=== PATIENT | male | born 1955 | race Caucasian/White ===

== ENCOUNTER 2017-04-29 18:48 | Inpatient (IN) ==
[2017-04-29] MEDS ORDERED: ZALEPLON 5 MG CAPSULE PO PRN (19:14)
[2017-04-29] MEDS ORDERED: ONDANSETRON 4 MG/2 ML VIAL IV PRN (19:14)
[2017-04-29] MEDS ORDERED: NITROGLYCERIN SL 0.4 MG TABLET SL PRN (19:14)
--- NOTE | 2017-04-29 19:26 | Cardiology History & Physical ---
Assessment and Plan (1) ST elevation (STEMI) myocardial infarction involving right coronary artery Status: Acute Assessment and plan: 1. 61-year-old white male smoker with hypertension, possible borderline diabetes "I think that I am borderline", untreated dyslipidemia (uncertain "allergy" to multiple statins), status post reported cerebral aneurysm clip December 2016, presented with intermittent episodes of chest pain for 3 days noted to have inferior injury pattern on EKG at [facility] with some anterolateral ST depression suggesting some reciprocal change transferred here for urgent heart catheterization. 2. Heart catheterization showed minimal left coronary disease, with critical 99 % high mid RCA stenosis as well as 80% distal stenosis now status post stenting with 2 drug-eluting stents (2.75 x 16, and 2.25 x 18 respectively with good result 3. He reportedly had another cerebral aneurysm that was not clipped but "they are just going to watch that one" 4. CT brain at [facility] reportedly showed some encephalomalacia with left temporal frontal clip?, With no acute bleeding or abnormality. 5. Apparent erythrocytosis status post phlebectomy "1 pint" yesterday at noon 6. Discontinuing all smoking will be very important for his future prognosis; will place low-dose nicotine patch, as he also has significant anxiety and reported claustrophobia taking frequent Xanax. 7. He apparently has been written and a depressive medicine in the past but is not taking it. Start Lexapro 10 mg daily. 8. Admit to CCU for close observation 9. Consult neurology given his need for antiplatelet therapy and history of cerebral aneurysm. We will need to try to get his records, was reportedly performed at [facility]? 10. I suspect he does not have real allergy to statins but since he is not a particular good historian now and his is unaware I will hold off on statin therapy for now. 11. Mild hypertension, will start low-dose Coreg given his TX. 12. Normal LV systolic function with ejection fraction 65% noted at catheterization. Addendum: I discussed with the patient the risks and benefits of heart catheterization including but not limited to , stroke, heart attack, vascular damage, reaction to medicine or dye, bleeding requiring blood transfusion, possible failure the procedure, possible need for urgent surgery, and possible restenosis requiring repeat intervention in the future. I have answered all questions regarding the procedure and the patient wishes to proceed. Current Visit: Yes (2) Hypertension Status: Acute Current Visit: Yes (3) Cerebral aneurysm Status: Acute Current Visit: Yes (4) Smoker Status: Acute Current Visit: Yes (5) Erythrocytosis Status: Acute Current Visit: Yes (6) Dyslipidemia Status: Acute Current Visit: Yes History of Present Illness Chief complaint: cp History of present illness: Mr. Bal is a 61 year old male who is transferred emergently to the [facility] here for inferior ST elevation myocardial infarction. He is a somewhat poor historian and reportedly had aneurysm clip in his brain in 2-3 weeks ago. He has had chest discomfort of some degree for several days but sought medical care at [facility] for persistent pain. He apparently also had some shoulder pain and some abdominal pain that radiated to his chest. He did not report having shortness of breath when he arrived here. He is not recall ever having any heart problems in the past but is not sure. He believes he is borderline diabetic, but his is unaware of this. He has had chest pain off and on since Thursday night when he is seen in the ER and felt to have indigestion. He always has dyspnea on exertion so his is unsure that is gotten any worse. She is unsure if he is having any change with any activities or positioning. He apparently takes a lot of Xanax for anxiety and apparently has not wanted to take antidepressants but was written some recently. He had a pint of blood taken off today about lunchtime "for blood that is to high". His chest pain got worse this evening using it [facility] where his troponin was 0.8 and he had some inferior ST elevation of about a millimeter in [address] some [address] depression laterally. Allergies Allergy/AdvReac Type Severity Reaction Status Date / Time codeine Allergy Verified 04/29/17 19:07 [id number] Reductase Allergy Verified 04/29/17 19:07 Inhibitor Cardiology Physical Exam - Constitutional Vitals: Intake and Output 04/29/17 04/29/17 04/29/17 07:59 15:59 23:59 Other: Weight 77.111 kg Patient Weight 04/29/17 23:59 Weight 77.111 kg General appearance: normal weight, mild distress - Head Head exam: Present: normal inspection, normocephalic, atraumatic - Cardiovascular Cardiovascular exam: Present: regular rate and rhythm - Extremities Exam Extremities exam: Absent: edema - Psychiatric Psychiatric exam: Present: anxious
[2017-04-29] MEDS ORDERED: SODIUM CHLORIDE 0.45% 1,000 ML IV SCH (19:30)
--- NOTE | 2017-04-29 19:51 | Cardiac Catheterization ---
Date of Procedure:: 04/29/17 Post-op diagnosis: same Procedure: Procedure performed: 1. Left heart catheterization 2. Coronary angiography 3. Left ventriculography 4. Abdominal aortogram with runoff 5. Right femoral arteriotomy closed with the Angio-Seal device Brief clinical summary: Mr. Bal arrived with inferior injury pattern ongoing chest pain. Description of procedure: After obtaining informed consent, the right groin was prepped and draped in the usual sterile fashion. Next a short 6 Kosovan sheath was placed in the right femoral artery using a modified Seldinger technique, after the patient received IV sedation and local anesthetic. Next a JL4 catheter was advanced over a guidewire under fluoroscopic guidance, and was engaged to the left coronary artery after which angiography was performed in multiple views. This was then removed over a wire, and a hockey-stick guiding catheter was advanced in similar fashion, and was engaged to the right coronary artery after which angiography was performed in multiple views. Percutaneous coronary mention was then performed as described below. After the intervention , next a bent pigtail catheter was advanced into the left ventricle, where hemodynamic measurements were obtained, and left ventriculography was performed. The pigtail was then pulled back and positioned in the distal abdominal aorta or abdominal urogram was performed with runoff. The angiogram showed that it was inserted in the right common femoral artery in a vessel suitable for closure. Hemostasis was obtained with Angio-Seal device with no residual bleeding. The patient was transferred from the [facility] in good condition without complication. Percutaneous coronary mention: The patient arrived the [facility] having received Lovenox full dose prior to transfer and aspirin. I loaded him with 300 mg of Plavix on the table as soon as it was clear he needed percutaneous intervention. A pro-water wire was advanced across the critical high mid RCA lesion without difficulty and advanced to the distal RCA. Next a 2.75 x 16 Synergy stent was advanced crosshair disease and was deployed at nominal pressures. Without moving the balloon I redilated to rated burst pressure is a stent appear to be slightly undersized on angiogram. In a different view there was a clear 80-90% stenosis in the distal RCA which was not the culprit was clearly significant. I was concerned this could be unstable plaque and so I removed the balloon and advanced a 2.25 x 18 Renny stent and stented this at nominal pressures. Without moving the balloon I dilated slightly above nominal pressures and there was a good result with the stent but there was a 30% stenosis of the distal edge which appeared to be a mild plaque at the distal stent edge. I advanced the balloon passed about 4 mm and dilated to just below nominal pressures for minute and a half. There was still residual 30% stenosis the distal edge but otherwise the stent look good with JOE-3 flow at the end of the procedure, there was JOE II flow before the initial stent was placed. Coronary angiography: Left main coronary arteries normal developed and free of disease. Left introducing artery is slightly smaller than average in caliber but does just reach the apex. There is a 40% high mid LAD stenosis of the first septal garden center manager. There is a long at least average caliber high diagonal branch and a tiny distal second diagonal branch. There are moderate irregularities in the LAD but no significant disease. The circumflex gives off only 2 branches of significance the OM1 has mild disease of 30%. The OM 2 has an ostial 60% discrete stenosis. Right coronary is a dominant vessel is of average in caliber. There is modest calcification proximally. There is a critical 99% high mid RCA stenosis, as well as an area of moderate to severe disease in the distal RCA varying from 50-90%. There is also moderate 50% disease in the mid PDA per the PDA is at least average caliber and is longer than average. There are 2 thinner than average caliber first and second posterior lateral branches. Left ventriculography: Left ventricle normal size with normal LV systolic function. The estimated ejection fraction is 65% without segmental wall motion abnormality. Abdominal aortogram with runoff: There is only mild disease throughout the right and left iliac and common femoral systems with widely patent profunda bilaterally. Both internal iliacs are patent. The right SFA has a discrete 60- 70 % stenosis in the midportion. The left mid SFA has a 70% discrete stenosis. There was three-vessel runoff to just past the trifurcation (mid and distal tibials were not evaluated) Impression: 1. Normal LV systolic function with ejection fraction is will be 65% without segmental wall is currently 2. Right dominant system 3. Diffuse nonsignificant disease in the left coronary with 60% ostial OM 2 stenosis 4. 99% high mid RCA stenosis (culprit vessel) with JOE II flow prior to stenting. 5. Severe distal RCA stenosis at worst 90%. 6. Status post stenting of mid RCA with drug-eluting stent (2.75 x 16 synergy) with excellent result and no residual stenosis. 7. Status post stenting of distal RCA with drug-eluting stent (2.25 x 18) dilated to 2.5 mm with 30% stenosis at the distal edge 8. Bilateral discrete approximate 70% mid SFA stenoses Recommendation discussion: Given these findings I believe achieved very good result cart distending Mr. Bal's critical RCA lesion which was the culprit for his inferior MN. We got a reasonable result stenting is significant distal RCA disease. When I initially accessed the vessel there appeared to be a low pressure pulse pressure and he reported that he had leg pain with walking less than 50 yards which prompted lower extremity angiography. His creatinine was normal and Louisa with high hematocrit in the 55% range I will consult neurology to give input given his history of aneurysm clips, and cerebral aneurysm. He apparently is followed Dr. De Leon previously. He will be watched closely in the CCU . We will continue Plavix and aspirin for now. Anesthesia: minimal conscious sedation Surgeon / Physician: James Castro Senior Billing Consultant: other Estimated blood loss: minimal Specimens: none sent Condition: stable Disposition: ICU/CCU - Medications / Follow-up
[2017-04-29] MEDS: FAMOTIDINE 20 MG TABLET PO SCH (20:34)
[2017-04-29] MEDS: CARVEDILOL 3.125 MG TABLET PO SCH (20:34)
[2017-04-29 22:23] LABS: CKMB % 12.8 %
[2017-04-29 22:25] LABS: Troponin I Only 4.02 NG/ML (0.00-0.045)
[2017-04-30 05:36] LABS: Basophils % 0.6 % (0.0-0.8); Eosinophils # 0.1 10*3/uL (0.0-0.87); Eosinophils % 0.9 % (0.00-10.9); Hemoglobin 19.7 GM/DL (14.0-18.0); Immature Granulocytes % 0.3 %; Immature Granulocytes Absolute 0.02 #; Lymphocytes # 2.4 10*3/uL (1.4-4.0); Lymphocytes % 38.3 % (21.2-54.2); Mean Corpuscular HGB Conc 35.2 GM/DL (32-36); Mean Corpuscular Hemoglobin 36 PG (27-34); Mean Platelet Volume 9.2 FL (9.6-12.0); Monocytes # 0.7 10*3/uL (0.11-0.8); Monocytes % 10.8 % (1.7-12.7); Neutrophils # 3.1 10*3/uL (1.4-7.4); Neutrophils % 49.1 % (38.7-73.9); Platelet Count 170 T/CUMM (130-400); Red Blood Count 5.49 MC/CUMM (3.8-5.5); Red Cell Distribution Width 13.6 % (9.3-17.3); White Blood Count 6.4 T/CUMM (4-12)
[2017-04-30 06:18] LABS: CKMB % 14.1 %; Calcium 8.9 MG/DL (8.5-10.1); Osmolality,Calculated 273.7 MOS/KG (273-304); Potassium 3.9 MMOL/L (3.5-5.1)
[2017-04-30 06:25] LABS: Troponin I Only 10.3 NG/ML (0.00-0.045)
--- NOTE | 2017-04-30 07:02 | EKG Report ---
Stationary ECG Study [facility] Test Date: 04/30/2017 7:02 AM Pat Name: JUAN MIGUEL ARGUELLES Department: Room: 121 Gender: M Collection Correspondent: YOSELYN : 1955 Requested by: James Rodríguez Order Number: [id number] Morena MD: TEX GUERRA Intervals [place] Rate: 69 P: 64 CO: 165 QRS: 75 QRSD: 94 T: 112 QT: 412 QTc: 431 Interpretive Statements SINUS RHYTHM Electronically Signed On 04-30-17 10:38:39 CDT by TEX GUERRA [email or web address]
[2017-04-30] MEDS ORDERED: ESCITALOPRAM 10 MG TABLET PO SCH (09:00)
[2017-04-30] MEDS: ASPIRIN EC 81 MG TABLET PO SCH (09:53)
[2017-04-30] MEDS: FAMOTIDINE 20 MG TABLET PO SCH ×2 (09:53→22:10)
[2017-04-30] MEDS: CLOPIDOGREL 75 MG TABLET PO SCH (09:53)
[2017-04-30] MEDS: CARVEDILOL 3.125 MG TABLET PO SCH (09:53)
[2017-04-30] MEDS: LEVALBUTEROL 0.63 MG/3 ML NEB RESP TX SCH ×3 (14:10→22:37)
[2017-04-30] MEDS: ALPRAZolam 0.5 MG TABLET PO SCH ×2 (14:32→22:10)
--- NOTE | 2017-04-30 15:21 | Cardiology Progress Note ---
I, Marilee Xavier NP, am scribing for, and in the presence of, Roderick Sosa MD 15:21. Assessment and Plan - Time spent with patient Time spent with patient: Greater than 30 minutes (Record review, assessment, documentation) (1) Cerebral aneurysm Status: Chronic Assessment and plan: SEE PLAN LISTED BELOW Current Visit: Yes (2) Dyslipidemia Status: Chronic Assessment and plan: SEE PLAN LISTED BELOW Current Visit: Yes (3) Erythrocytosis Status: Chronic Assessment and plan: SEE PLAN LISTED BELOW Current Visit: Yes (4) Hypertension Status: Chronic Assessment and plan: SEE PLAN LISTED BELOW Current Visit: Yes (5) ST elevation (STEMI) myocardial infarction involving right coronary artery Status: Acute Assessment and plan: SEE PLAN LISTED BELOW Current Visit: Yes (6) Smoker Status: Chronic Assessment and plan: SEE PLAN LISTED BELOW Current Visit: Yes Cardiology - PN: Subj Interval history: LEAD CUSTOMER SERVICE REPRESENTATIVE: Dr. Castro SUMMARY: Mr. Bal is a 61 WM who transferred emergently for inferior ST elevation myocardial infarction. The patient is a poor historian due to previous cerebral aneurysm with clips, but apparently had ongoing chest discomfort for several days and presented to [facility] ER for persistent chest pain, shoulder pain, and abdominal pain radiating to the chest. He was immediately taken for cardiac catheterization where he received a stent to the mid and distal RCA. He was noted to have bilateral discrete 70% mid SFA stenoses. LV systolic function is normal, with EF is 65%, and there is diffuse nonsignificant disease in the left coronary with 60% ostial OM 2. Patient was seen in ICU today. He was awake and alert, oriented to self. After reorienting the patient, he denies complaints of chest pain or shortness of breath. He has some wheezing noted bilaterally, and the patient does confirm that he has COPD. He is a heavy smoker, admitting 1 pack per day and smoking "forever". Vital signs have remained stable, and the patient did well overnight. Labs reviewed this morning reveal hemoglobin 19.7 and hematocrit 56. Hematology has been consulted for this. EKG shows sinus rhythm. I plan is to transfer the patient to telemetry, and continue monitoring. I will stop Coreg and change this to metoprolol due to his COPD. We will start respiratory treatments on the patient for wheezing, he does not appear to be in distress. Neurology consult pending, CT of head performed at the external facility revealed old left frontotemporal craniotomy with associated suprasellar aneurysm clips, suggestion of minimal inferior medial right frontal cortical encephalomalacia, no acute findings. Plan for social service consult for help with medications upon discharge, the patient does not have insurance. IMPRESSION/PLAN: 1. STEMI -status post PCI to mid and distal right coronary artery. Multiple nonobstructive lesions in addition. Continue ASA, BB, and Plavix. 2. TOBACCO ABUSE -the merits of smoking cessation discussed with the patient and making cessation encouraged. 3. DYSLIPIDEMIA -recommend lifestyle changes, initiated Crestor 10 mg nightly. Previous "allergy" noted, unknown reaction. Given his diffuse CAD, PAD, we will try to initiate low-dose statin and increase as tolerated 4. ERYTHROCYTOSIS -H&H 19.7 and 56, COPD contributing factor, hematology consult pending. I suspect this is due to COPD, heavy smoking. 5. PAD -bilateral mid SFA stenosis estimated at 70%, smoking cessation necessary, will need outpatient follow-up. 6. HYPERTENSION -metoprolol initiated, will monitor and adjust accordingly. 7. Cerebral aneurysm -neurology consult pending due to his need for antiplatelet therapy and a history of aneurysm. CT of head revealed chronic left frontotemporal craniotomy with associated suprasellar aneurysm clips, suggested minimal inferior medial right frontal cortical encephalomalacia May go to telemetry Exam (Progress Note) - Constitutional Vitals: Period Temp Pulse Resp BP Sys/Florian Pulse Ox Last 24 Hr 97.4 F-98.7 F 62-79 12-28 94-141/61-87 92-100 Exam: General: Appears well with no apparent distress. Pleasant and cooperative. Appears comfortable. HEENT: PERRL, normocephalic, atraumatic. Mucous membranes moist. No jaundice noted. Conjunctiva moist and clear, sclerae anicteric. Neck: No JVD/HJR, no thyromegaly or lymphadenopathy noted. No carotid bruit appreciated. Cardiac: Regular rate and rhythm. No murmur rub or gallop. PMI is nondisplaced. Lungs: Wheezing noted bilaterally throughout, no distress noted. Oxygen in use via nasal cannula. Abdomen: Soft, bowel sounds normoactive. Nontender and nondistended. No abdominal bruit or thrill noted. No masses noted. Musculoskeletal: No fluid collection. Full range of motion is noted. Extremities: No clubbing, cyanosis noted. No edema noted. Upper extremity pulses 2+. Lower extremity pulses 2+. Capillary refill less than 3 seconds. Dressing removed from right groin, soft, no hematoma noted, no bruit auscultated , right pedal pulse palpable. Skin: Warm and dry. No unusual lesions or rashes. No skin breakdown appreciated. Neuro: Awake, alert and oriented to self. Moves all extremities well without hemiparesis or paralysis. No essential tremor is appreciated. Result/EKG - Labs CBC & BMP: 04/30/17 05:04 04/30/17 05:04 Lab Results: I have reviewed the past 24 hour labs Labs: Laboratory Results - last 24 hr 04/29/17 04/30/17 04/30/17 21:12 05:04 05:04 WBC 6.4 RBC 5.49 Hgb 19.7 H Hct 56.0 H MCV 102.0 MCH 36 H MCHC 35.2 RDW 13.6 Plt Count 170 MPV 9.2 L Neut % (Auto) 49.1 Lymph % (Auto) 38.3 [place] % (Auto) 10.8 Eos % (Auto) 0.9 Baso % (Auto) 0.6 Neut # (Auto) 3.1 Lymph # (Auto) 2.4 [place] # (Auto) 0.7 Eos # (Auto) 0.1 Baso # (Auto) 0.0 Immature Gran % 0.3 Nucleated RBC % 0.0 Immature Gran # 0.02 Nucleated RBCs # 0.00 Immature Plt Fraction 0.0 Sodium 138 Potassium 3.9 Chloride 101 Carbon Dioxide 30 Anion Gap 10.9 BUN 7 Creatinine 0.80 GFR Calculation 112 BUN/Creatinine Ratio 8.00 Glucose 112 H Calculated Osmolality 273.7 Calcium 8.9 Total Creatine Kinase 260 307 CK-MB (CK-2) 33.3 H 43.3 H D CK and CKMB Interp 12.8 14.1 Troponin I 4.020 H 10.300 H D - Diagnostic Findings Procedure: CT: report reviewed by me - EKG EKG results: interpreted by me, sinus rhythm Specialty Discharge - Follow Up or Referrals Sheila Galvez Attila, MD, personally performed the services described in this documentation, ascribed by Marilee Xavier NP in my presence, and it is both accurate and complete 521 .
--- NOTE | 2017-04-30 15:31 | Oncology Consult Note ---
History of Present Illness Chief complaint: Elevated Hemoglobin History of present illness: Mr. Bal is a 61 year old male with apparent stress polycythemia. I was asked to see this patient because of polycythemia. He is a 61-year-old smoker with hypertension and possible borderline diabetes. He was admitted with a right coronary artery myocardial infarct and on admission was found to have a hemoglobin of 19.7 with a hematocrit of 56.0. His white cell count is 6400 and he has a platelet count of 170,000. His white cell differential is normal. Yesterday he underwent: 1. Left heart catheterization 2. Coronary angiography 3. Left ventriculography 4. Abdominal aortogram with runoff 5. Right femoral arteriotomy closed with the Angio-Seal device Cardiovascular disease is also positive for the patient having 2 cerebral aneurysms, one of which has been clipped and the other one is being observed. This is been concern about the patient needing antiplatelet therapy with the cerebral aneurysms. Since I am not familiar with the extent of this disease, I agree with consulting neurology at [facility] to get their opinion concerning this matter. The patient is not a good historian. Some of the information is from his . Past medical history: Allergies: The patient is allergic to statins, codeine and HMG-CoA reductase inhibitors. Past medical history is positive for hypertension, dyslipidemia, diabetes mellitus. Social history: Positive for cigarette smoking. Family history: Negative for blood dyscrasias or bleeding disorders. His mother of pancreatic cancer. ROS: Information is difficult to obtain. The patient explains that his mentation has not been good since he had the cerebral aneurysm clipped. Apparently he has no history of eye disease. ENT disorders, he does not recall any. Pulmonary: He continues to smoke but there is no definite history of significant COPD or asthma. GI: No history of upper or lower GI bleed but again the patient is very vague about his symptoms. Review of systems is otherwise difficult to obtain. Neurologic: Apparently the patient has not had any seizures, convulsions or paralysis and has not actually had a stroke. Physical examination: General: The patient is somewhat acutely ill-appearing but not in any extremis. Eyes: Normal lids and conjunctivae. ENT: His oral mucosa and pharynx are normal. His hearing is normal. Teeth appear normal. Neck: His trachea is midline and he has no neck masses. Pulmonary: Breath sounds may be slightly coarse throughout but I hear no rubs, rales or rhonchi in the expiratory phase of respiration is normal. I note that earlier in his admission he had expiratory wheezing bilaterally. There is no chest tenderness. Cardiovascular: His heart rhythm is regular without murmur, gallop or rub. There is no clubbing or cyanosis. Abdomen: No masses, organomegaly, distention, tenderness or ascites. Musculoskeletal: There is no focal muscle atrophy or bone or joint deformity. Neurologic: The patient's mentation is slow but I cannot detect any focal neurologic deficit including cranial nerves II through XII. Skin: I see no significant skin lesions or rashes. Psychiatric: Again, the patient's mentation is slow but he does not necessarily appear to have any significant psychiatric problem. Impression: Stress polycythemia. Once his cardiac condition has improved, he can continue phlebotomies. My recommendation would be to continue phlebotomies on a weekly basis until his hemoglobin is 15 or less. This can be accomplished by his primary care physician. I do not plan to phlebotomize him polys here. Thank you for consulting me. Home Medications Medication Instructions Recorded Confirmed Type ALPRAZolam [Xanax] 1 mg PO TID 04/30/17 04/30/17 History Lisinopril/Hydrochlorothiazide 1 each PO BEDTIME 04/30/17 04/30/17 History [Zestoretic 10-12.5 mg Tablet] Metoprolol Tartrate Tab [Lopressor 50 mg PO DAILY 04/30/17 04/30/17 History Tab] Allergies Allergy/AdvReac Type Severity Reaction Status Date / Time codeine Allergy Verified 04/29/17 19:07 [id number]-[id number]-Kfu Reductase Allergy Verified 04/29/17 19:07 Inhibitor Medical,Surgical,& Family Hx - Medical History Cardio: History of: Hypertension Psychological: History of: Anxiety Disorders, Depression Neurology: History of: Brain Aneurysm, Dementia (short term memory post brain sx ) Endocrine: History of: Dyslipidemia Respiratory: History of: Asthma, Bronchitis, COPD, Pneumonia Gastrointestinal: History of: GERD, GI Problems (hernia post colon sx) Musculoskeletal: History of: Back/Neck Problems (back sx) - Surgical History Neurologic Surgeries: Surgical HX of: Brain Aneurysm, Neurologic Surgery (brain aneurysm sx in october) Abdominal Surgeries: Surgical HX of: Appendectomy Orthopedic Surgeries: Comment Only: Total Knee Replacement (sx on right miniscus) - Family History Family History: Reports;: Family Cancer (mom pancreatic), Family Diabetes ( brother. father), Family Heart Disease (brother), Family Hypertension (mom dad brothers), Family Stroke (brother) - Social History Smoking Status: Current every day smoker Frequency of Alcohol Use: Frequently Type of Drug Use: None Exam - Constitutional Vitals: Period Temp Pulse Resp BP Sys/Florian Pulse Ox Last 24 Hr 97.4 F-98.7 F 62-79 12-28 94-141/61-87 91-100 Results - Labs CBC & BMP: 04/30/17 05:04 04/30/17 05:04 Specialty Discharge - Follow Up or Referrals
[2017-04-30] MEDS: ROSUVASTATIN 10 MG TABLET PO SCH (22:10)
[2017-05-01] MEDS: LEVALBUTEROL 0.63 MG/3 ML NEB RESP TX SCH ×6 (02:32→23:43)
[2017-05-01 04:54] LABS: Basophils # 0.1 10*3/uL (0.0-0.2); Basophils % 0.8 % (0.0-0.8); Eosinophils # 0.1 10*3/uL (0.0-0.87); Eosinophils % 0.8 % (0.00-10.9); Hematocrit 53.4 VOL% (42.0-52.0); Hemoglobin 18.8 GM/DL (14.0-18.0); Immature Granulocytes % 0.5 %; Immature Granulocytes Absolute 0.03 #; Lymphocytes # 2.7 10*3/uL (1.4-4.0); Mean Corpuscular HGB Conc 35.2 GM/DL (32-36); Mean Corpuscular Hemoglobin 36 PG (27-34); Mean Corpuscular Volume 102.1 FL (87-102); Mean Platelet Volume 9.4 FL (9.6-12.0); Monocytes # 0.7 10*3/uL (0.11-0.8); Monocytes % 9.9 % (1.7-12.7); Neutrophils # 3.1 10*3/uL (1.4-7.4); Platelet Count 147 T/CUMM (130-400); Red Blood Count 5.23 MC/CUMM (3.8-5.5); Red Cell Distribution Width 13.3 % (9.3-17.3); White Blood Count 6.5 T/CUMM (4-12)
[2017-05-01 05:22] LABS: Calcium 8.9 MG/DL (8.5-10.1); Magnesium 2.3 MG/DL (1.8-2.4); Osmolality,Calculated 274.7 MOS/KG (273-304); Potassium 3.8 MMOL/L (3.5-5.1)
--- NOTE | 2017-05-01 07:20 | Physician Query Form ---
CLICK EDIT DOCUMENT TO SELECT QUERY ANSWER --> OK --> SIGN Magda Lake RN, CCDS Certified Clinical Marine Engineering Teacher W) [phone] (f) [phone] [email or web address] PROVIDERS: Make your selection(s) from the choices in EACH section by typing an "x" and enter comments in the comment section. Please use your independent medical judgment in providing your response. This request does not imply that any particular answer is desired or expected. CLINICAL INDICATORS: (Providers should not edit this section) "He has some wheezing noted bilaterally, and the patient does confirm that he has COPD" and the patient was placed on Xopenex. Clarify which of the following accurately represents the acuity of the above diagnosis. ( ) Acute (Exacerbation) (x) Acute (Exacerbation) on chronic ( ) Chronic stable condition ( ) Remission ( ) Other, please specify: ( ) Clinically unable to determine COMMENTS: PLEASE ALSO DOCUMENT RESPONSE IN PROGRESS NOTES AND/OR DISCHARGE SUMMARY Use of terms such as suspected, likely, or probable (associated with a specific diagnosis that is being evaluated, monitored, or treated as if it exists) are acceptable and can be restated in the discharge summary if not ruled out. [facility]
[2017-05-01] MEDS ORDERED: ACETAMINOPHEN 500 MG TABLET PO PRN (08:01)
--- NOTE | 2017-05-01 08:38 | EKG Report ---
Stationary ECG Study [facility] Test Date: 05/01/2017 8:15:56 AM Pat Name: JUAN MIGUEL ARGUELLES Department: Room: 121 Gender: M Tool Design Checker: VANCE : 1955 Requested by: Roderick Sosa Order Number: [id number] Reading MD: TEX GUERRA Intervals [place] Rate: 57 P: 58 MT: 193 QRS: 69 QRSD: 97 T: -21 QT: 427 QTc: 421 Interpretive Statements SINUS RHYTHM Electronically Signed On 05-01-17 17:08:58 CDT by TEX GUERRA [email or web address]
[2017-05-01] MEDS: ASPIRIN EC 81 MG TABLET PO SCH (09:53)
[2017-05-01] MEDS: FAMOTIDINE 20 MG TABLET PO SCH ×2 (09:54→20:50)
[2017-05-01] MEDS: METOPROLOL TARTRATE 25 MG TABLET PO SCH (09:54)
[2017-05-01] MEDS: CLOPIDOGREL 75 MG TABLET PO SCH (09:54)
[2017-05-01] MEDS: ALPRAZolam 0.5 MG TABLET PO SCH ×3 (09:54→20:50)
[2017-05-01] MEDS: NICOTINE 21 MG/24 HR PATCH TRANSDERM SCH (09:54)
--- NOTE | 2017-05-01 13:52 | Cardiology Progress Note ---
I, Marilee Xavier NP, am scribing for, and in the presence of, Roderick Sosa MD 13:52. Assessment and Plan - Time spent with patient Time spent with patient: Greater than 30 minutes (Record review, assessment, and documented) (1) Cerebral aneurysm Status: Chronic Assessment and plan: SEE PLAN LISTED BELOW Current Visit: Yes (2) Dyslipidemia Status: Chronic Assessment and plan: SEE PLAN LISTED BELOW Current Visit: Yes (3) Erythrocytosis Status: Chronic Assessment and plan: SEE PLAN LISTED BELOW Current Visit: Yes (4) Hypertension Status: Chronic Assessment and plan: SEE PLAN LISTED BELOW Current Visit: Yes (5) ST elevation (STEMI) myocardial infarction involving right coronary artery Status: Acute Assessment and plan: SEE PLAN LISTED BELOW Current Visit: Yes (6) Smoker Status: Chronic Assessment and plan: SEE PLAN LISTED BELOW Current Visit: Yes Cardiology - PN: Subj Interval history: ENROLLED NURSE: Dr. Castro SUMMARY: Mr. Bal is a 61 WM who transferred emergently for inferior ST elevation myocardial infarction. The patient is a poor historian due to previous cerebral aneurysm with clips, but apparently had ongoing chest discomfort for several days and presented to the [facility] ER for persistent chest pain, shoulder pain, and abdominal pain radiating to the chest. He was immediately taken for cardiac catheterization where he received a stent to the mid and distal RCA. He was noted to have bilateral discrete 70% mid SFA stenoses. LV systolic function is normal, with EF is 65%, and there is diffuse nonsignificant disease in the left coronary with 60% ostial OM 2. Patient was seen in ICU today. He was awake and alert, oriented to self. After reorienting patient, he denies complaints of chest pain or shortness of breath. He has some wheezing noted bilaterally, and the patient does confirm that he has COPD. He is a heavy smoker, admitting 1 pack per day and smoking "forever". Vital signs have remained stable, and the patient did well overnight. Labs reviewed this morning reveal hemoglobin 19.7 and hematocrit 56. Hematology has been consulted for this. EKG shows sinus rhythm. I plan is to transfer the patient to telemetry, and continue monitoring. I will stop Coreg and change this to metoprolol due to his COPD. We will start respiratory treatments on the patient for wheezing, he does not appear to be in distress. Neurology consult pending, CT of head performed at the external facility revealed old left frontotemporal craniotomy with associated suprasellar aneurysm clips, suggestion of minimal inferior medial right frontal cortical encephalomalacia, no acute findings. Plan for social service consult for help with medications upon discharge, the patient does not have insurance. 2016: The patient was seen in ICU, pending telemetry transfer. He complains of mild chest pain through the night, and headache. Appreciate hematology consult, likely stress polycythemia and the patient may follow-up with his PCP weekly for phlebotomies to maintain a hemoglobin less than 15, once discharged from the hospital. His H&H has improved, it is 18.8 and 53 respectively. Vital signs have remained stable, sinus bradycardia with rate in the 50s noted after starting beta-alisha. Blood glucose level 120, will check hemoglobin A1c with morning labs. Neurology consult pending. Plan for discharge home tomorrow. Have discussed with the patient the necessity of smoking cessation as well as strict medication compliance upon discharge. IMPRESSION/PLAN: 1. STEMI -status post PCI to mid and distal right coronary artery. Multiple nonobstructive lesions in addition. Continue ASA, BB, and Plavix. Borderline bradycardia limits dose titration of the beta-alisha. 2. TOBACCO ABUSE -the merits of smoking cessation discussed with the patient and making cessation encouraged. 3. DYSLIPIDEMIA -recommend lifestyle changes, initiated Crestor 10 mg nightly. Previous "allergy" noted, unknown reaction. Given his diffuse CAD, PAD, we will try to initiate low-dose statin and increase as tolerated. No issues with statin so far. 4. ERYTHROCYTOSIS - stress polycythemia, likely due to COPD. Hem/onc saw him. 5. PAD -bilateral mid SFA stenosis estimated at 70%, smoking cessation necessary, will need outpatient follow-up. No active ischemia. 6. HYPERTENSION - not well controlled. 7. Cerebral aneurysm - neurology consult pending due to his need for antiplatelet therapy and a history of aneurysm. CT of head revealed chronic left frontotemporal craniotomy with associated suprasellar aneurysm clips, suggested minimal inferior medial right frontal cortical encephalomalacia 8. ELEVATED BLOOD GLUCOSE -will check hemoglobin A1c with morning labs. May need to consider initiating metformin. May go to telemetry, if stable, discharge home tomorrow. Exam (Progress Note) - Constitutional Vitals: Period Temp Pulse Resp BP Sys/Florian Pulse Ox Last 24 Hr 98.7 F 57-70 10-22 105-142/62-78 94-100 Exam: General: Appears well with no apparent distress. Pleasant and cooperative. Appears comfortable. HEENT: PERRL, normocephalic, atraumatic. Mucous membranes moist. No jaundice noted. Conjunctiva moist and clear, sclerae anicteric. Neck: No JVD/HJR, no thyromegaly or lymphadenopathy noted. No carotid bruit appreciated. Cardiac: Regular rate and rhythm. No murmur rub or gallop. PMI is nondisplaced. Lungs: Wheezing noted bilaterally throughout, no distress noted. Oxygen in use via nasal cannula. Abdomen: Soft, bowel sounds normoactive. Nontender and nondistended. No abdominal bruit or thrill noted. No masses noted. Musculoskeletal: No fluid collection. Full range of motion is noted. Extremities: No clubbing, cyanosis noted. No edema noted. Upper extremity pulses 2+. Lower extremity pulses 2+. Capillary refill less than 3 seconds. Dressing removed from right groin, soft, no hematoma noted, no bruit auscultated , right pedal pulse palpable. Skin: Warm and dry. No unusual lesions or rashes. No skin breakdown appreciated. Neuro: Awake, alert and oriented to self. Moves all extremities well without hemiparesis or paralysis. No essential tremor is appreciated. Result/EKG - Labs CBC & BMP: 05/01/17 04:41 05/01/17 04:41 Lab Results: I have reviewed the past 24 hour labs Labs: Laboratory Results - last 24 hr 05/01/17 05/01/17 04:41 04:41 WBC 6.5 RBC 5.23 Hgb 18.8 H Hct 53.4 H MCV 102.1 H MCH 36 H MCHC 35.2 RDW 13.3 Plt Count 147 MPV 9.4 L Neut % (Auto) 47.0 Lymph % (Auto) 41.0 [place] % (Auto) 9.9 Eos % (Auto) 0.8 Baso % (Auto) 0.8 Neut # (Auto) 3.1 Lymph # (Auto) 2.7 [place] # (Auto) 0.7 Eos # (Auto) 0.1 Baso # (Auto) 0.1 Immature Gran % 0.5 Nucleated RBC % 0.0 Immature Gran # 0.03 Nucleated RBCs # 0.00 Immature Plt Fraction 0.0 Sodium 138 Potassium 3.8 Chloride 103 Carbon Dioxide 28 Anion Gap 10.8 BUN 9 Creatinine 0.80 GFR Calculation 112 BUN/Creatinine Ratio 11.00 Glucose 120 H Calculated Osmolality 274.7 Calcium 8.9 Magnesium 2.3 - EKG EKG results: interpreted by me, sinus rhythm Specialty Discharge - Follow Up or Referrals Sheila Galvez Attila, MD, personally performed the services described in this documentation, ascribed by Marilee Xavier NP in my presence, and it is both accurate and complete [id number] .
[2017-05-01] MEDS: ROSUVASTATIN 10 MG TABLET PO SCH (20:50)
[2017-05-02 04:16] LABS: Basophils % 0.7 % (0.0-0.8); Eosinophils # 0.1 10*3/uL (0.0-0.87); Eosinophils % 1.6 % (0.00-10.9); Hematocrit 51.6 VOL% (42.0-52.0); Hemoglobin 18.3 GM/DL (14.0-18.0); Immature Granulocytes % 0.5 %; Immature Granulocytes Absolute 0.03 #; Lymphocytes # 1.8 10*3/uL (1.4-4.0); Lymphocytes % 31.9 % (21.2-54.2); Mean Corpuscular HGB Conc 35.5 GM/DL (32-36); Mean Corpuscular Hemoglobin 36 PG (27-34); Mean Corpuscular Volume 102.4 FL (87-102); Mean Platelet Volume 9.6 FL (9.6-12.0); Monocytes # 0.6 10*3/uL (0.11-0.8); Monocytes % 10.6 % (1.7-12.7); Neutrophils # 3.2 10*3/uL (1.4-7.4); Neutrophils % 54.7 % (38.7-73.9); Platelet Count 161 T/CUMM (130-400); Red Blood Count 5.04 MC/CUMM (3.8-5.5); Red Cell Distribution Width 13.3 % (9.3-17.3); White Blood Count 5.8 T/CUMM (4-12)
[2017-05-02] MEDS: LEVALBUTEROL 0.63 MG/3 ML NEB RESP TX SCH ×2 (04:20→08:22)
[2017-05-02 04:49] LABS: Calcium 8.6 MG/DL (8.5-10.1); Magnesium 2.6 MG/DL (1.8-2.4); Osmolality,Calculated 280.4 MOS/KG (273-304); Potassium 3.9 MMOL/L (3.5-5.1)
[2017-05-02 05:10] LABS: Troponin I Only 1.9 NG/ML (0.00-0.045)
[2017-05-02 08:45] VITALS: BP 139/84
[2017-05-02] MEDS ORDERED: LISINOPRIL 2.5 MG TABLET PO SCH (09:00)
[2017-05-02] MEDS: METOPROLOL TARTRATE 25 MG TABLET PO SCH (09:20)
[2017-05-02] MEDS: CLOPIDOGREL 75 MG TABLET PO SCH (09:20)
[2017-05-02] MEDS: ASPIRIN EC 81 MG TABLET PO SCH (09:20)
[2017-05-02] MEDS: ALPRAZolam 0.5 MG TABLET PO SCH (09:20)
[2017-05-02] MEDS: FAMOTIDINE 20 MG TABLET PO SCH (09:20)
[2017-05-02] MEDS: NICOTINE 21 MG/24 HR PATCH TRANSDERM SCH (09:20)
--- NOTE | 2017-05-02 09:35 | Discharge Summary ---
Hospital Course - Hospital Course Hospital Course: 61-year-old male, will be followed by Dr. Castro. He was admitted with inferior STEMI, and underwent urgent LHC/PCI Impression: 1. Normal LV systolic function with ejection fraction is will be 65% without segmental wall is currently 2. Right dominant system 3. Diffuse nonsignificant disease in the left coronary with 60% ostial OM 2 stenosis 4. 99% high mid RCA stenosis (culprit vessel) with JOE II flow prior to stenting. 5. Severe distal RCA stenosis at worst 90%. 6. Status post stenting of mid RCA with drug-eluting stent (2.75 x 16 synergy) with excellent result and no residual stenosis. 7. Status post stenting of distal RCA with drug-eluting stent (2.25 x 18) dilated to 2.5 mm with 30% stenosis at the distal edge 8. Bilateral discrete approximate 70% mid SFA stenoses He was a smoker, importance of smoking this cessation was discussed in detail. Cardiac Rehab consult obtained. He has polycythemia, hem/onc consult suggested disease stress erythrocytosis, likely due to COPD. He will need outpatient pulmonary workup History of brain aneurysm, status post clipping, neuro consult was requested but they did not see him as an inpatient. He will need neurological follow-up as he will need to stay on dual antiplatelets for his recent STEMI, PCI. No bleeding issues were encountered during his hospital stay. Post-cath activity limitations were discussed. Continue aspirin, clopidogrel, beta-alisha, ACEI Although he has history of statin intolerance, he had no issues with low-dose Crestor started during this hospital stay. Follow-up with Dr. Castro in 2 weeks. Diagnosis - Discharge Diagnosis (1) Cerebral aneurysm Status: Chronic (2) Dyslipidemia Status: Chronic (3) Erythrocytosis Status: Chronic (4) Hypertension Status: Chronic (5) ST elevation (STEMI) myocardial infarction involving right coronary artery Status: Acute (6) Smoker Status: Chronic Specialty Discharge - Follow Up or Referrals Discharge Plan - Discharge Data Disposition: Disch To Home/Self Care Condition at Discharge: Stable Discharge Diet: advance to your usual diet Activity: resume usual activities as tolerated Hygiene: no restrictions Weight Bearing at Discharge: full weight bearing Driving: no restrictions Contact your physician if you experience:: fever over 101, Difficulty voiding, Redness or swelling, Nausea/Vomiting, Shortness of breath, Bleeding, pain uncontrolled by pain medications - Discharge Medications New Clopidogrel [Plavix] 75 mg PO DAILY #60 tablet Famotidine Tab [Pepcid Tab] 20 mg PO BID #60 tablet Metoprolol Tartrate Tab [Lopressor Tab] 12.5 mg PO DAILY #60 tablet Nitroglycerin Sl Tab [Nitrostat] 0.4 mg SL Q5M PRN #30 tablet PRN Reason: Chest Pain Rosuvastatin [Crestor] 10 mg PO BEDTIME #30 tablet Aspirin EC Tab 81 mg PO DAILY #30 tablet Continue ALPRAZolam [Xanax] 1 mg PO TID Lisinopril/Hydrochlorothiazide [Zestoretic 10-12.5 mg Tablet] 1 each PO BEDTIME Discontinued Metoprolol Tartrate Tab [Lopressor Tab] 50 mg PO DAILY - Follow Up or Referral Follow Up: James Castro MD [Physician] - 2 Weeks - Forms/Instructions Instructions: Myocardial Infarction (GEN), Left Heart Catheterization (DC), How to Stop Smoking (GEN), Heart Healthy Diet (GEN), Coronary Intravascular Stent Placement (DC), Cigarette Smoking and Your Health, Culturist (GEN) Exam - Constitutional Vitals: Period Temp Pulse Resp BP Sys/Florian Pulse Ox Last 24 Hr 97.0 F-98.8 F 54-65 15-20 124-144/69-87 91-100 General appearance: normal weight, no acute distress - Head Head exam: Present: normal inspection, normocephalic - Eye Eye exam: Absent: scleral icterus, laceration to eyelids Pupils: Absent: dilated - ENT ENT exam: Present: normal external ear exam - Neck Neck exam: Present: normal inspection - Respiratory Respiratory exam: Present: clear to auscultation bilaterally - Cardiovascular Cardiovascular exam: Present: regular rate and rhythm. Absent: JVD, systolic murmur - GI/Abdominal GI/Abdominal exam: Present: normal bowel sounds. Absent: distended, guarding - Extremities Exam Extremities exam: Present: normal inspection, normal capillary refill. Absent: edema - Back Exam Back exam: Present: normal inspection - Neurological Exam Neurological exam: Present: alert, oriented X3 - Psychiatric Psychiatric exam: Present: normal affect, normal mood - Skin Skin exam: Present: normal color, warm. Absent: cyanosis Discharge Results Labs on day of discharge: Labs from last 24 hours 09/05/02/17 05/02/17 03:55 03:55 03:55 WBC 5.8 RBC 5.04 Hgb 18.3 H Hct 51.6 MCV 102.4 H MCH 36 H MCHC 35.5 RDW 13.3 Plt Count 161 MPV 9.6 Neut % (Auto) 54.7 Lymph % (Auto) 31.9 [place] % (Auto) 10.6 Eos % (Auto) 1.6 Baso % (Auto) 0.7 Neut # (Auto) 3.2 Lymph # (Auto) 1.8 [place] # (Auto) 0.6 Eos # (Auto) 0.1 Baso # (Auto) 0.0 Immature Gran % 0.5 Nucleated RBC % 0.0 Immature Gran # 0.03 Nucleated RBCs # 0.00 Immature Plt Fraction 0.0 Sodium 140 Potassium 3.9 Chloride 106 Carbon Dioxide 28 Anion Gap 9.9 BUN 14 Creatinine 0.80 GFR Calculation 112 BUN/Creatinine Ratio 17.00 Glucose 118 H Hemoglobin A1c 5.9 Calculated Osmolality 280.4 Calcium 8.6 Magnesium 2.6 H Troponin I 1.900 H D - Imaging and Cardiology Cardiology Procedure: image reviewed by me, report reviewed by me DS: Provider Date of admission: 04/29/17 19:25 Primary care physician: ALICE Cesar Attending physician on admission: James Gale Consults: 04/29/17 19:14 Consult to Cardiac Rehabilitation [CONS] Routine Reason for Cardiac Rehabilitation: Risk Factor Modification Other Consult Comment: Evaluate and recommend 04/30/17 09:40 Consult to Physician [CONS] Routine Comment: s/p DC with stent, hx cerebral aneurysm clip Consulting Provider: Josh Luke Consult to Specialist Group: Neurology When should Consulting Provider be notified: Now Date Notified: 04/30/17 Time Notified: 10:14 Consult Notification Comment: Left message at Dr. Luke's office on voicemail Talked to Rama at 1040, informed that neurology is on bypass until Thursday04/30/17 13:24 Consult to Case Mgmt/Social Srvs [CONS] Routine Reason for Case Mgmt/Social Srvs: Discharge Planning Consult Comment: assist with medications upon discharge, no INS Discharging clinician: Roderick Sosa MD Expected date of discharge: 05/02/17
== END 2017-05-02 11:51 | disposition home or self-care (01) | DRG 247 ==
LOC: N.CL 18:48 → N.CC 19:25 → N.TELEN 05-01 19:03
PROVIDERS: ADMIT Internal Medicine Cardiovascular Disease; ATTEND Internal Medicine Cardiovascular Disease
PROC: CLCCHCL (ICD-10-PCS; 2017-04-29 19:15)

== ENCOUNTER 2017-05-04 01:51 | Inpatient (IN) ==
[2017-05-04] MEDS ORDERED: ASPIRIN 325 MG TABLET PO STA (02:10)
[2017-05-04] MEDS ORDERED: ONDANSETRON 4 MG/2 ML VIAL IV STA (02:10)
[2017-05-04] MEDS ORDERED: MORPHINE 2 MG/1 ML SYRINGE IV STA (02:10)
--- NOTE | 2017-05-04 02:21 | Emergency Department Note ---
Laurel Galvez Emily, am scribing for, and in the presence of, Alpesh Pickett MD 02: 20. Piyush Galvez Charles R, MD, personally performed the services described in this documentation, ascribed by Dana Barragan in my presence, and it is both accurate and complete . Arrival - Arrival Chief Complaint: Chest Pain ED Nursing Triage Note: C/O Chest pain that has now resolved. Onset around 2200. Pt was seen and evaluated at [facility] and sent for further evaluation. Pt was recently admitted for STEMI- Discharged 05/02/17. Pt reports that he is a daily drinker of 6 pack of beer for 10+ years. Mode of Arrival: Stretcher Limitations: No Limitations Source: Patient, Significant other, Family Time Seen by Provider: 05/04/17 01:59 - History of Present Illness HPI Narrative: Pt is a 61 y/o male who was transferred from [facility] to ED for further evaluation of elevated troponin. Pt notes his chest pain onset 2200 and is having mild chest tightness in ED. Pt was seen on Thursday for STEMI and d/c Thursday with prescriptions that pharmacy closed before they were d/c. Pt was given plavix on Thursday before d/c but not had any Thursday or this morning. Family notes when pt starts having chest pain he goes into a panic attack, as well. Pt is a smoker and drinks a 6pack of beer a day and has been for 10 years. Onset (ago): hour(s) Consistency: intermittent, now resolved Severity: moderate Severity scale (1-10): 5 Allergies/Adverse Reactions: Allergies Allergy/AdvReac Type Severity Reaction Status Date / Time codeine Allergy Verified 04/29/17 19:07 Qagohiv-Yfv-Mvl Reductase Allergy Verified 04/29/17 19:07 Inhibitor Home Medications: Home Medications Medication Instructions Recorded Confirmed Type ALPRAZolam [Xanax] 1 mg PO TID 04/30/17 05/04/17 History Lisinopril/Hydrochlorothiazide 1 each PO BEDTIME 04/30/17 05/04/17 History [Zestoretic 10-12.5 mg Tablet] Aspirin EC Tab 81 mg PO DAILY #30 tablet 05/02/17 05/04/17 Rx Clopidogrel [Plavix] 75 mg PO DAILY #60 tablet 05/02/17 05/04/17 Rx Docusate Sodium Cap [Colace Cap] 100 mg PO TID #30 capsule 05/02/17 05/04/17 Rx Famotidine Tab [Pepcid Tab] 20 mg PO BID #60 tablet 05/02/17 05/04/17 Rx Hydrocortisone (Anusol-Hc) Sup 25 mg RECTAL BID #12 supp 05/02/17 05/04/17 Rx [ANUSOL HC SUPP (hydrocortisone)] Metoprolol Tartrate Tab [Lopressor 12.5 mg PO DAILY #60 tablet 05/02/17 Rx Tab] Nitroglycerin Sl Tab [Nitrostat] 0.4 mg SL Q5M PRN #30 tablet 05/02/17 05/04/17 Rx Rosuvastatin [Crestor] 10 mg PO BEDTIME #30 tablet 05/02/17 05/04/17 Rx Review of System - Review of System 12 point system: reviewed and no additional remarkable complaints except as stated - Review of System Constitutional: Absent: chills, diaphoresis, fever, weakness Respiratory: Absent: respiratory distress Cardiovascular: Present: chest pain (mild tightness now) Gastrointestinal: Absent: abdominal pain, nausea Musculoskeletal: Absent: arm pain, neck pain Skin: Absent: rash Neurological: Absent: headache, numbness, paresthesias Medical,Surgical,& Family Hx - Medical History Cardio: History of: Hypertension Psychological: History of: Anxiety Disorders, Depression Neurology: History of: Brain Aneurysm, Dementia (short term memory post brain sx ) Endocrine: History of: Dyslipidemia Respiratory: History of: Asthma, Bronchitis, COPD, Pneumonia Gastrointestinal: History of: GERD, GI Problems (hernia post colon sx) Musculoskeletal: History of: Back/Neck Problems (back sx) - Surgical History Neurologic Surgeries: Surgical HX of: Brain Aneurysm, Neurologic Surgery (brain aneurysm sx in october) Abdominal Surgeries: Surgical HX of: Appendectomy Orthopedic Surgeries: Comment Only: Total Knee Replacement (sx on right miniscus) - Family History Family History: Reports;: Family Cancer (mom pancreatic), Family Diabetes ( brother. father), Family Heart Disease (brother), Family Hypertension (mom dad brothers), Family Stroke (brother) - Social History Smoking Status: Current every day smoker Frequency of Alcohol Use: Frequently Type of Drug Use: None Marital Status: Lives With:: Spouse Functional capacity: independent ambulation Exam Vital Signs: Vital Signs Temperature 98.9 F 05/04/17 01:59 Pulse Rate 72 05/04/17 01:59 Respiratory Rate 16 05/04/17 01:59 Blood Pressure 149/89 05/04/17 01:59 O2 Sat by Pulse Oximetry 96 05/04/17 01:59 - General General appearance: alert, in no apparent distress - Head Head exam: Present: atraumatic, normocephalic - Eye Eye exam: Present: PERRL, EOMI - ENT ENT exam: Present: mucous membranes moist. Absent: mucous membranes dry - Neck Neck exam: Present: full ROM, trachea midline - Chest Chest inspection: Present: symmetric chest wall rise. Absent: tenderness - Respiratory Respiratory exam: Present: rales (bilateral), rhonchi (bilateral). Absent: normal lung sounds bilaterally, respiratory distress - Cardiovascular Cardiovascular exam: Present: regular rate, normal rhythm, normal heart sounds - Extremities Exam Extremities exam: Present: full ROM - Neurological Exam Neurological exam: Present: alert, oriented X3, CN II-XII intact. Absent: motor sensory deficit - Psychiatric Psychiatric exam: Present: normal affect, normal mood - Skin Skin exam: Present: warm, dry Course - Consultations Consultation #1: Dr Sosa will admit pt Time: 02:21 Results - Labs Labs: All labs reviewed from previous facility Disposition Clinical Impression: Chest pain, Smoker, Elevated troponin Case discussed with: patient, patient's family Disposition: Still a Patient Condition: Stable Time of Disposition: 02:22
[2017-05-04 03:01] LABS: Basophils % 0.6 % (0.0-0.8); Eosinophils # 0.1 10*3/uL (0.0-0.87); Eosinophils % 1.2 % (0.00-10.9); Hematocrit 54.1 VOL% (42.0-52.0); Immature Granulocytes % 0.5 %; Immature Granulocytes Absolute 0.03 #; Lymphocytes # 2.5 10*3/uL (1.4-4.0); Lymphocytes % 38.5 % (21.2-54.2); Mean Corpuscular HGB Conc 35.1 GM/DL (32-36); Mean Corpuscular Hemoglobin 36 PG (27-34); Mean Corpuscular Volume 102.3 FL (87-102); Monocytes # 0.6 10*3/uL (0.11-0.8); Neutrophils # 3.2 10*3/uL (1.4-7.4); Neutrophils % 49.2 % (38.7-73.9); Platelet Count 183 T/CUMM (130-400); Red Blood Count 5.29 MC/CUMM (3.8-5.5); Red Cell Distribution Width 13.2 % (9.3-17.3); White Blood Count 6.4 T/CUMM (4-12)
[2017-05-04 03:20] LABS: Albumin 3.5 G/DL (3.4-5.0); Bilirubin,Total 0.7 MG/DL (0.2-1.0); Calcium 9.3 MG/DL (8.5-10.1); Magnesium 2.5 MG/DL (1.8-2.4); Osmolality,Calculated 267.1 MOS/KG (273-304); Potassium 4.1 MMOL/L (3.5-5.1); Total Protein 7.3 G/DL (6.4-8.3)
[2017-05-04] MEDS ORDERED: NICOTINE 21 MG/24 HR PATCH TRANSDERM PRN (04:43)
[2017-05-04] MEDS ORDERED: ALBUTEROL/IPRATROPIUM 3 ML NEB RESP TX PRN (04:43)
[2017-05-04] MEDS ORDERED: SODIUM CHLORIDE 0.9% 1,000 ML IV SCH (04:43)
[2017-05-04] MEDS ORDERED: MORPHINE 2 MG/1 ML SYRINGE IV PRN (04:43)
[2017-05-04] MEDS ORDERED: MAGNESIUM SULF RIDER 4 GM in PREMIX 1 EACH IV PRN (04:43)
[2017-05-04] MEDS ORDERED: POTASSIUM CHLORIDE 20 MEQ TABLET PO PRN (04:43)
[2017-05-04] MEDS ORDERED: NITROGLYCERIN SL 0.4 MG TABLET SL PRN (04:43)
[2017-05-04] MEDS ORDERED: ONDANSETRON 4 MG/2 ML VIAL IV PRN (04:43)
[2017-05-04] MEDS ORDERED: MAGNESIUM SULF RIDER 2 GM in PREMIX 1 EACH IV PRN (04:43)
[2017-05-04] MEDS ORDERED: ENOXAPARIN 80 MG/0.8 ML SYRINGE SUBCUT SCH (05:00)
[2017-05-04] MEDS: methylPREDNISolone SOD SUC 40 MG/1 ML VIAL IV SCH ×3 (05:01→20:17)
[2017-05-04] MEDS: NITROGLYCERIN 2% OINT 1 INCH/GM PACK TOP SCH ×3 (05:10→18:29)
--- NOTE | 2017-05-04 06:25 | EKG Report ---
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
--- NOTE | 2017-05-04 08:27 | XRay Report ---
XR chest 1V portable Indication: Chest pain Comparison: Chest x-ray April 29, 2017 Technique: Single frontal view of the chest. Findings: The cardiomediastinal silhouette is stable in configuration. Chronic change of the lungs without focal consolidation, pleural effusion, or pneumothorax. Visualized osseous and surrounding soft tissue structures appear grossly unchanged. IMPRESSION: Stable chest x-ray without acute cardiopulmonary process demonstrated. PROCEDURE INTERPRETED AT [facility] DEPARTMENT OF RADIOLOGY Final Report Signed by: Dr Gurmeet Ventura
--- NOTE | 2017-05-04 08:56 | EKG Report ---
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
[2017-05-04] MEDS ORDERED: ASPIRIN EC 81 MG TABLET PO SCH (09:00)
[2017-05-04] MEDS ORDERED: FAMOTIDINE 20 MG TABLET PO SCH (09:00)
[2017-05-04] MEDS: ALPRAZolam 0.5 MG TABLET PO SCH ×3 (09:37→20:16)
[2017-05-04] MEDS: ASPIRIN EC 81 MG TABLET PO SCH (09:37)
[2017-05-04] MEDS: DOCUSATE SODIUM 100 MG CAPSULE PO SCH ×3 (09:37→20:17)
[2017-05-04] MEDS: PANTOPRAZOLE 40 MG TABLET PO SCH (09:38)
[2017-05-04] MEDS: METOPROLOL TARTRATE 25 MG TABLET PO SCH (09:38)
[2017-05-04] MEDS: CLOPIDOGREL 75 MG TABLET PO SCH (09:38)
[2017-05-04] MEDS: HYDROCORTISONE 25 MG SUPP RECTAL SCH ×2 (09:47→20:16)
[2017-05-04] MEDS ORDERED: ALBUTEROL 1.25 MG/3 ML NEB RESP TX PRN (10:04)
[2017-05-04] MEDS ORDERED: ENOXAPARIN 40 MG/0.4 ML SYRINGE SUBCUT SCH (10:30)
--- NOTE | 2017-05-04 10:41 | Cardiology History & Physical ---
I, Marilee Xavier NP, am scribing for, and in the presence of, James Castro MD 10:41. Assessment and Plan - Time spent with patient Time spent with patient: Greater than 30 minutes (Record review, assessment, documentation) (1) CAD (coronary artery disease) Status: Chronic Assessment and plan: I have interviewed and examined Mr. Bal. Impression: 1. 61-year-old WM smoker with significant anxiety, alcohol abuse history (down to a sixpack of beer per day) with hypertension, dyslipidemia, cerebral aneurysm clip at [facility] November 2016, presented with inferior AZ about 5 days ago status post stenting by me of his critical right coronary lesion (no significant disease in his left system), now presented last evening with chest discomfort (the patient does not remember why he came to the hospital, but I talked his ) who is currently pain-free and has no troponin elevation of than expected status post AZ (continue to fall and well under 1 now) 2. No acute EKG changes 3. Transfer to telemetry 4. Polycythemia seen by hematology last week who agree with his weekly phlebotomy in [place] 5. Tentatively plan for discharge in the morning 6. He appears depressed and is taking Xanax frequently during the day; start Lexapro. 7. His prognosis to be largely determined with his medical compliance, and getting off of cigarettes and alcohol A. He is to continue baby aspirin and Plavix without fail (missed one Plavix dose Thursday because the pharmacy was closed, as he was discharged Thursday from here) Current Visit: Yes (2) Hypertension Status: Chronic Assessment and plan: SEE PLAN LISTED BELOW Current Visit: Yes (3) Cerebral aneurysm Status: Chronic Assessment and plan: SEE PLAN LISTED BELOW Current Visit: No (4) Smoker Status: Chronic Assessment and plan: SEE PLAN LISTED BELOW Current Visit: Yes (5) Erythrocytosis Status: Chronic Assessment and plan: SEE PLAN LISTED BELOW Current Visit: No (6) Dyslipidemia Status: Chronic Assessment and plan: SEE PLAN LISTED BELOW Current Visit: No (7) Chest pain Status: Acute Assessment and plan: SEE PLAN LISTED BELOW Current Visit: Yes (8) Elevated troponin Status: Acute Assessment and plan: SEE PLAN LISTED BELOW Current Visit: Yes History of Present Illness Chief complaint: chest pain History of present illness: [employer]GI[employer]IST: Dr. Castro Mr. Bal is a 61 year old male, who was urgently taken for cardiac catheterization for STEMI on 04/29/17. He received a stent to the mid and distal RCA and noted to have bilateral discrete 70% mid SFA stenoses. LV systolic function was normal, with EF 65%, and diffuse nonsignificant disease in the left coronary with 60% ostial OM. The patient presented to the emergency room on 05/04/17 with complaints of chest pain. The patient reported that he was unable to get his prescription of Plavix filled after discharge, and did not take the medication on Thursday. The patient reports that he continues smoking upon discharge, and he has a significant history of anxiety. Past medical history includes CAD, recent STEMI with stents last week, cerebral aneurysm with clips (12/2016), COPD, heavy smoker, erythrocytosis. Cardiac risk factors include recent STEMI with PCI (one week ago), heavy smoker, hypertension , dyslipidemia. The patient is a poor historian, and has difficulty recounting the events from the time of discharge to the time of readmission. He is seen in the ICU unit. He is oriented to self, and he denies chest pain currently. Vital signs have remained stable, EKG shows normal sinus rhythm. Labs reviewed today, H&H 19 and 54, sodium 135, potassium 4.1, BUN 10, creatinine 0.7, glucose 88, magnesium 2.5. Troponin was 1.03 on admission, and 0.672 this morning. Hemoglobin A1c during last admission was 5.9. I will start the patient on an anti-anxiety medication. We will plan to continue observation and current medications, further recommendations to follow from Dr. Castro. IMPRESSION/PLAN: 1. S/P STEMI - 04/29/17 PCI to mid and distal RCA, continue ASA, Lovenox, Plavix. 2. CHEST PAIN - currently chest pain free, troponin 1.3 then 0.67, continue to cycle with EKGs. 3. DYSLIPIDEMIA - continue Crestor. Tolerating despite "allergy", reaction unknown. 4. TOBACCO ABUSE - merits of smoking cessation have been discussed and encouraged with the patient. 5. ANEURYSM CLIPS - 12/2016, Neurology consult, did not see last week. 6. HYPERTENSION - well controlled, continue beta alisha and ACEI. Home Medications Medication Instructions Recorded Confirmed Type ALPRAZolam [Xanax] 1 mg PO TID 04/30/17 05/04/17 History Lisinopril/Hydrochlorothiazide 1 each PO BEDTIME 04/30/17 05/04/17 History [Zestoretic 10-12.5 mg Tablet] Aspirin EC Tab 81 mg PO DAILY #30 tablet 05/02/17 05/04/17 Rx Clopidogrel [Plavix] 75 mg PO DAILY #60 tablet 05/02/17 05/04/17 Rx Docusate Sodium Cap [Colace Cap] 100 mg PO TID #30 capsule 05/02/17 05/04/17 Rx Famotidine Tab [Pepcid Tab] 20 mg PO BID #60 tablet 05/02/17 05/04/17 Rx Hydrocortisone (Anusol-Hc) Sup 25 mg RECTAL BID #12 supp 05/02/17 05/04/17 Rx [ANUSOL HC SUPP (hydrocortisone)] Metoprolol Tartrate Tab [Lopressor 12.5 mg PO DAILY #60 tablet 05/02/17 Rx Tab] Nitroglycerin Sl Tab [Nitrostat] 0.4 mg SL Q5M PRN #30 tablet 05/02/17 05/04/17 Rx Rosuvastatin [Crestor] 10 mg PO BEDTIME #30 tablet 05/02/17 05/04/17 Rx Allergies Allergy/AdvReac Type Severity Reaction Status Date / Time codeine Allergy Verified 04/29/17 19:07 - Constitutional Constitutional: Absent: anorexia, chills, daytime sleepiness - EENT Eyes: Absent: blurry vision Nose, mouth and throat: Absent: dysphagia, epistaxis, headache(s) - Cardiovascular Cardiovascular: Present: chest pain at rest, chest pain with activity. Absent: diaphoresis, dyspnea, dyspnea on exertion, edema, radiating jaw, neck or arm pain, orthopnea, palpitations - Respiratory Respiratory: Absent: cough, dyspnea, dyspnea on exertion, wheezing - Gastrointestinal Gastrointestinal: Absent: abdominal pain, bloating, change in bowel habits, coffee ground emesis, heartburn, hematemesis, melena, nausea, vomiting - Genitourinary Genitourinary: Absent: difficulty urinating, dysuria - Neurological Neurological: Absent: abnormal gait, abnormal speech, behavioral changes, confusion - Psychiatric Psychiatric: Present: anxiety. Absent: confusion, depression - Endocrine Endocrine: Absent: cold intolerance, fatigue - Hematologic/Lymphatic Hematologic/Lymphatic: Absent: easy bleeding Medical,Surgical,& Family Hx - Medical History Cardio: History of: CAD, Hypertension, [place] Psychological: History of: Anxiety Disorders, Depression Neurology: History of: Brain Aneurysm (October 2016), Dementia (short term memory post brain sx) Endocrine: History of: Dyslipidemia Respiratory: History of: Asthma, Bronchitis, COPD, Pneumonia Gastrointestinal: History of: GERD, GI Problems (hernia post colon sx) Musculoskeletal: History of: Back/Neck Problems (back sx) - Surgical History Cardiac Surgeries: Sugical HX of: Cardiac Catheterization Neurologic Surgeries: Surgical HX of: Brain Aneurysm (October 2016), Neurologic Surgery (brain aneurysm sx in october) Abdominal Surgeries: Surgical HX of: Appendectomy Orthopedic Surgeries: Comment Only: Total Knee Replacement (sx on right miniscus) - Family History Family History: Reports;: Family Cancer (mom pancreatic), Family Diabetes ( brother. father), Family Heart Disease (brother), Family Hypertension (mom dad brothers), Family Stroke (brother) - Social History Smoking Status: Current every day smoker Have you smoked in the last 12 months: Yes Time spent discussing smoking cessation with patient: 3 to 10 minutes Frequency of Alcohol Use: Frequently Type of Drug Use: None Marital Status: Lives With:: Spouse Functional capacity: independent ambulation Cardiology Physical Exam - Constitutional Vitals: Vital Signs Temp Pulse Resp BP Pulse Ox 97.3 F L 57 L 18 110/72 94 L 05/04/17 04:45 05/04/17 08:00 05/04/17 08:00 05/04/17 08:00 05/04/17 08:00 Intake and Output 05/03/17 05/04/17 05/04/17 23:59 07:59 15:59 Intake Total 0 / 0 0 / 0 Balance 0 / 0 0 / 0 Intake: Oral 0 / 0 0 / 0 Other: Voiding Method Urinal # Voids 0 Weight 186 lb 14.4 oz Patient Weight 05/04/17 23:59 Weight 186 lb 14.4 oz Exam: General: Appears without distress. Pleasant and cooperative. Appears comfortable. HEENT: PERRL, normocephalic, atraumatic. Mucous membranes moist. No jaundice noted. Conjunctiva moist and clear, sclerae anicteric. Neck: No JVD/HJR, no thyromegaly or lymphadenopathy noted. No carotid bruit appreciated. Cardiac: Regular rate and rhythm. No murmur rub or gallop. PMI is nondisplaced. Lungs: Wheezing noted bilaterally to auscultation without accessory muscle use to assist the respiratory pattern. No oxygen required. Abdomen: Soft, bowel sounds normoactive. Nontender and nondistended. No abdominal bruit or thrill noted. No masses noted. Musculoskeletal: No fluid collection. Full range of motion is noted. Extremities: No clubbing, cyanosis noted. No edema noted. Upper extremity pulses 2+. Lower extremity pulses 2+. Capillary refill less than 3 seconds. Skin:Warm and dry. No unusual lesions or rashes. No skin breakdown appreciated. Neuro: Awake, alert and oriented to self. Moves all extremities well without hemiparesis or paralysis. No essential tremor is appreciated. Result/EKG - Labs CBC & BMP: 05/04/17 02:43 05/04/17 02:43 Lab Results: I have reviewed the past 24 hour labs Labs: Laboratory Results - last 24 hr 05/04/17 05/04/17 05/04/17 02:43 02:43 02:43 WBC 6.4 RBC 5.29 Hgb 19.0 H Hct 54.1 H MCV 102.3 H MCH 36 H MCHC 35.1 RDW 13.2 Plt Count 183 MPV 9.0 L Neut % (Auto) 49.2 Lymph % (Auto) 38.5 [place] % (Auto) 10.0 Eos % (Auto) 1.2 Baso % (Auto) 0.6 Neut # (Auto) 3.2 Lymph # (Auto) 2.5 [place] # (Auto) 0.6 Eos # (Auto) 0.1 Baso # (Auto) 0.0 Immature Gran % 0.5 Nucleated RBC % 0.0 Immature Gran # 0.03 Nucleated RBCs # 0.00 Immature Plt Fraction 0.0 Sodium 135 L Potassium 4.1 Chloride 105 Carbon Dioxide 24 Anion Gap 10.1 BUN 10 Creatinine 0.70 GFR Calculation 121 BUN/Creatinine Ratio 14.00 Glucose 88 Calculated Osmolality 267.1 L Calcium 9.3 Magnesium 2.5 H Total Bilirubin 0.70 AST 27 ALT 39 Alkaline Phosphatase 74 Troponin I B-Natriuretic Peptide 16 Total Protein 7.3 Albumin 3.5 Globulin 3.8 H Albumin/Globulin Ratio 0.9 L Lipase 205.0 05/04/17 05/04/17 02:43 07:07 WBC RBC Hgb Hct MCV MCH MCHC RDW Plt Count MPV Neut % (Auto) Lymph % (Auto) [place] % (Auto) Eos % (Auto) Baso % (Auto) Neut # (Auto) Lymph # (Auto) [place] # (Auto) Eos # (Auto) Baso # (Auto) Immature Gran % Nucleated RBC % Immature Gran # Nucleated RBCs # Immature Plt Fraction Sodium Potassium Chloride Carbon Dioxide Anion Gap BUN Creatinine GFR Calculation BUN/Creatinine Ratio Glucose Calculated Osmolality Calcium Magnesium Total Bilirubin AST ALT Alkaline Phosphatase Troponin I 1.030 H D 0.672 H D B-Natriuretic Peptide Total Protein Albumin Globulin Albumin/Globulin Ratio Lipase - EKG EKG results: interpreted by me, sinus rhythm IGloria Randall Scott, MD, personally performed the services described in this documentation, ascribed by Marilee Xavier NP in my presence, and it is both accurate and complete 041 .
[2017-05-04 11:08] LABS: Troponin I Only 0.353 NG/ML (0.00-0.045)
[2017-05-04] MEDS: ROSUVASTATIN 20 MG TABLET PO SCH ×2 (12:40→20:16)
[2017-05-04] MEDS: ESCITALOPRAM 10 MG TABLET PO SCH (12:40)
[2017-05-04] MEDS ORDERED: LISINOPRIL/HCTZ 10-12.5 MG TABLET PO SCH (21:00)
[2017-05-04] MEDS ORDERED: ESCITALOPRAM 10 MG TABLET PO SCH (21:00)
[2017-05-04] MEDS ORDERED: ROSUVASTATIN 10 MG TABLET PO SCH (21:00)
[2017-05-05] MEDS: NITROGLYCERIN 2% OINT 1 INCH/GM PACK TOP SCH ×2 (00:14→05:47)
[2017-05-05 05:26] LABS: Basophils % 0.1 % (0.0-0.8); Hematocrit 49.6 VOL% (42.0-52.0); Hemoglobin 17.7 GM/DL (14.0-18.0); Immature Granulocytes Absolute 0.15 #; Lymphocytes # 1.4 10*3/uL (1.4-4.0); Lymphocytes % 9.7 % (21.2-54.2); Mean Corpuscular HGB Conc 35.7 GM/DL (32-36); Mean Corpuscular Hemoglobin 36 PG (27-34); Mean Platelet Volume 9.9 FL (9.6-12.0); Monocytes # 0.6 10*3/uL (0.11-0.8); Monocytes % 4.1 % (1.7-12.7); Neutrophils # 12.6 10*3/uL (1.4-7.4); Neutrophils % 85.1 % (38.7-73.9); Platelet Count 210 T/CUMM (130-400); Red Blood Count 4.91 MC/CUMM (3.8-5.5); Red Cell Distribution Width 12.6 % (9.3-17.3); White Blood Count 14.8 T/CUMM (4-12)
[2017-05-05] MEDS: methylPREDNISolone SOD SUC 40 MG/1 ML VIAL IV SCH (05:45)
[2017-05-05 06:02] LABS: Albumin 3.5 G/DL (3.4-5.0); Bilirubin,Total 0.6 MG/DL (0.2-1.0); Calcium 9.1 MG/DL (8.5-10.1); Magnesium 2.5 MG/DL (1.8-2.4); Osmolality,Calculated 277.1 MOS/KG (273-304); Potassium 4.4 MMOL/L (3.5-5.1); Total Protein 6.7 G/DL (6.4-8.3)
--- NOTE | 2017-05-05 08:13 | XRay Report ---
History is short of breath Comparison 05/04/2017 The heart is normal in size. The lungs are clear. Impression: No acute pathology seen. PROCEDURE INTERPRETED AT [facility] DEPARTMENT OF RADIOLOGY Final Report Signed by: Dr. Sandra Ramirez
[2017-05-05 08:36] VITALS: BP 124/81
[2017-05-05] MEDS: ROSUVASTATIN 20 MG TABLET PO SCH (09:12)
[2017-05-05] MEDS: HYDROCORTISONE 25 MG SUPP RECTAL SCH (09:12)
[2017-05-05] MEDS: ASPIRIN EC 81 MG TABLET PO SCH (09:12)
[2017-05-05] MEDS: METOPROLOL TARTRATE 25 MG TABLET PO SCH (09:12)
[2017-05-05] MEDS: PANTOPRAZOLE 40 MG TABLET PO SCH (09:13)
[2017-05-05] MEDS: CLOPIDOGREL 75 MG TABLET PO SCH (09:13)
[2017-05-05] MEDS: ALPRAZolam 0.5 MG TABLET PO SCH (09:13)
[2017-05-05] MEDS: DOCUSATE SODIUM 100 MG CAPSULE PO SCH (09:13)
[2017-05-05] MEDS: ESCITALOPRAM 10 MG TABLET PO SCH (09:13)
--- NOTE | 2017-05-05 10:23 | Discharge Summary ---
I, Marilee Xavier, LEXUS, am scribing for, and in the presence of, James Castro MD 10:23. Hospital Course - Hospital Course Hospital Course: Mr. Bal is a 61-year-old WM, who was readmitted for chest pain 05/04/17. He had been discharged 05/02/17, 3 days post STEMI with stent to the mid and distal RCA. The patient was admitted for observation with complaints of chest pain. He had missed one day of Plavix due to not filling a prescription. He had no acute EKG changes, cardiac biomarkers continue to trend downward well under 1, as expected. The patient was started on an antidepressant due to anxiety and frequent use of Xanax. We will also start the patient on nicotine patch to aid with smoking cessation. I have discussed at length with the patient the importance of smoking and alcohol cessation as well as medication compliance. Will plan for follow-up at [facility] with Dr. Castro in 1 week. BMP with mag and EKG prior to the appointment. Due to computer error, the patient was given paper RXs for Crestor, Nicotine patch, Zestoretic, and Lexapro. Discharge medications Aspirin EC 81 mg p.o. daily Plavix 75 mg p.o. daily Lexapro 10 mg p.o. daily Lisinopril/HCTZ 10-12.5 p.o. daily Metoprolol 12.5 mg p.o. daily Nicotine 21 mg patch, use as directed Nitroglycerin sublingual tabs 0.4 mg sublingual every 5 as needed chest pain Crestor 20 mg PO QHS Addendum: Mr. Bal is asymptomatic this morning, but as usual has some difficulty with his memory. I discussed with him at length his absolute need to stop all smoking to reduce his risk of stroke heart attack or other vascular or cancer complications. I also discussed the importance of taking Lexapro to assist him in getting off of frequent Xanax. At this time I believe he is received maximal hospital benefit discharged home. - Time spent with patient Time with patient DS: Greater than 30 minutes (Record review, assessment, and discharge) Time spent discussing smoking cessation with patient: 3 to 10 minutes Diagnosis - Discharge Diagnosis (1) CAD (coronary artery disease) Status: Chronic (2) Hypertension Status: Chronic (3) Cerebral aneurysm Status: Chronic (4) Smoker Status: Chronic (5) Erythrocytosis Status: Chronic (6) Dyslipidemia Status: Chronic (7) Chest pain Status: Resolved (8) Elevated troponin Status: Resolved Specialty Discharge - Follow Up or Referrals Follow up with: James Castro MD [Physician] - 2 Weeks (05/18/17 @ 10:00 am for lab (bmp with mag) 3rd floor 05/20/17 @ 1:00 pm with EKG (5th floor)) Discharge Plan - Discharge Data Disposition: Disch To Home/Self Care Condition at Discharge: Stable Discharge Diet: heart healthy Activity: resume usual activities as tolerated Hygiene: may shower Driving: not for (Cleared by neurology) Contact your physician if you experience:: fever over 101, Shortness of breath - Discharge Medications New Nicotine 21 mg/24 Hr Patch [Nicoderm CQ 21 mg/24 hr Patch] 1 patch TRANSDERM DAILY PRN #30 patch PRN Reason: Nicotine Cravings Lisinopril/Hydrochlorothiazide [Zestoretic 10-12.5 mg Tablet] 1 tablet PO BEDTIME #30 tablet Escitalopram [Lexapro] 10 mg PO DAILY #30 tablet Rosuvastatin [Crestor] 20 mg PO BEDTIME #30 tablet Continue ALPRAZolam [Xanax] 1 mg PO TID Clopidogrel [Plavix] 75 mg PO DAILY #60 tablet Famotidine Tab [Pepcid Tab] 20 mg PO BID #60 tablet Metoprolol Tartrate Tab [Lopressor Tab] 12.5 mg PO DAILY #60 tablet Nitroglycerin Sl Tab [Nitrostat] 0.4 mg SL Q5M PRN #30 tablet PRN Reason: Chest Pain Hydrocortisone (Anusol-Hc) Sup [Anusol HC Supp] 25 mg RECTAL BID #12 supp Aspirin EC Tab 81 mg PO DAILY #30 tablet Docusate Sodium Cap [Colace Cap] 100 mg PO TID #30 capsule Discontinued Rosuvastatin [Crestor] 10 mg PO BEDTIME #30 tablet - Follow Up or Referral Follow Up: James Castro MD [Physician] - 2 Weeks (05/18/17 @ 10:00 am for lab (bmp with mag) 3rd floor 05/20/17 @ 1:00 pm with EKG (5th floor)) - Forms/Instructions Instructions: Chest Pain (DC), How to Stop Smoking (DC), Anxiety (DC) Exam - Constitutional Vitals: Period Temp Pulse Resp BP Sys/Florian Pulse Ox Last 24 Hr 97 F-987 F 56-78 16-20 94-152/57-87 92-98 Exam: General: Appears well with no apparent distress. Pleasant and cooperative. Appears comfortable. HEENT: PERRL, normocephalic, atraumatic. Mucous membranes moist. No jaundice noted. Conjunctiva moist and clear, sclerae anicteric. Neck: No JVD/HJR, no thyromegaly or lymphadenopathy noted. No carotid bruit appreciated. Cardiac: Regular rate and rhythm. No murmur rub or gallop. PMI is nondisplaced. Lungs: Clear to auscultation without accessory muscle use to assist the respiratory pattern. Oxygen in use via nasal cannula. Abdomen: Soft, bowel sounds normoactive. Nontender and nondistended. No abdominal bruit or thrill noted. No masses noted. Musculoskeletal: No fluid collection. Decreased range of motion is noted. Extremities: No clubbing, cyanosis noted. No edema noted. Upper extremity pulses 2+. Lower extremity pulses 2+. Capillary refill less than 3 seconds. Skin: No unusual lesions or rashes. No skin breakdown appreciated. Neuro: Awake, alert and oriented 3. Moves all extremities well without hemiparesis or paralysis. No essential tremor is appreciated. Discharge Results Labs on day of discharge: Labs from last 24 hours 05/05/17 05/05/17 05/05/17 04:23 04:23 04:23 WBC 14.8 H D RBC 4.91 Hgb 17.7 Hct 49.6 MCV 101.0 MCH 36 H MCHC 35.7 RDW 12.6 Plt Count 210 MPV 9.9 Neut % (Auto) 85.1 H Lymph % (Auto) 9.7 L [place] % (Auto) 4.1 Eos % (Auto) 0.0 Baso % (Auto) 0.1 Neut # (Auto) 12.6 H Lymph # (Auto) 1.4 [place] # (Auto) 0.6 Eos # (Auto) 0.0 Baso # (Auto) 0.0 Immature Gran % 1.0 Nucleated RBC % 0.0 Immature Gran # 0.15 Nucleated RBCs # 0.00 Immature Plt Fraction 0.0 Sodium 135 L Potassium 4.4 Chloride 100 Carbon Dioxide 28 Anion Gap 11.4 BUN 17 Creatinine 0.90 GFR Calculation 107 BUN/Creatinine Ratio 18.00 Glucose 200 H Calculated Osmolality 277.1 Calcium 9.1 Magnesium 2.5 H Total Bilirubin 0.60 AST 13 ALT 35 Alkaline Phosphatase 74 Total Creatine Kinase CK-MB (CK-2) Troponin I B-Natriuretic Peptide 44 Total Protein 6.7 Albumin 3.5 Globulin 3.2 Albumin/Globulin Ratio 1.0 L 05/04/17 10:29 WBC RBC Hgb Hct MCV MCH MCHC RDW Plt Count MPV Neut % (Auto) Lymph % (Auto) [place] % (Auto) Eos % (Auto) Baso % (Auto) Neut # (Auto) Lymph # (Auto) [place] # (Auto) Eos # (Auto) Baso # (Auto) Immature Gran % Nucleated RBC % Immature Gran # Nucleated RBCs # Immature Plt Fraction Sodium Potassium Chloride Carbon Dioxide Anion Gap BUN Creatinine GFR Calculation BUN/Creatinine Ratio Glucose Calculated Osmolality Calcium Magnesium Total Bilirubin AST ALT Alkaline Phosphatase Total Creatine Kinase 47 CK-MB (CK-2) 1.1 Troponin I 0.353 H D B-Natriuretic Peptide Total Protein Albumin Globulin Albumin/Globulin Ratio DS: Provider Expected date of discharge: 05/05/17 Gloria Galvez Randall Scott, MD, personally performed the services described in this documentation, ascribed by Marilee Xavier NP in my presence, and it is both accurate and complete 023 .
[2017-05-05] MEDS ORDERED: ROSUVASTATIN 10 MG TABLET PO SCH (10:30)
== END 2017-05-05 11:15 | disposition home or self-care (01) | DRG 282 ==
LOC: EDUNIT# → EDBD → N.ED 01:51 → N.EDINP 02:22 → N.CC 04:05
PROVIDERS: ADMIT Internal Medicine Cardiovascular Disease; ATTEND Internal Medicine Cardiovascular Disease